=== PATIENT | female | born 1965 | race Caucasian/White ===

== ENCOUNTER → 2016-05-07 | Outpatient (CLI) | payer OTHER ==
[2016-05-07 08:02] LABS: Urine RBC None Seen /hpf (0 - 4)
[2016-05-07 08:18] LABS: Basophils # (auto) 0 uL; Basophils % (auto) 0.8 % (0.0-2.0); Eosinophils # (auto) 0.2 uL; Eosinophils % (auto) 3.9 % (0.0-7.0); Hematocrit 43.7 % (36.0-46.0); Hemoglobin 14.8 g/dL (12.2-16.2); Lymphocytes # (auto) 1.6 uL; Lymphocytes % (auto) 26.4 % (10.0-50.0); Mean Corpuscular Hemoglobin 31.2 pg (28.0-32.0); Mean Corpuscular Hgb Conc. 33.9 g/dL (32.0-36.0); Mean Corpuscular Volume 92.1 fL (80.0-100.0); Mean Platelet Volume 9.4 fL (7.4-10.4); Monocytes # (auto) 0.4 uL; Monocytes % (auto) 6.8 % (0.0-12.0); Neutrophils # (auto) 3.8 uL; Neutrophils % (auto) 62.1 % (37.0-80.0); Platelet Count (auto) 232 10^3/uL (140-450); Red Cell Distribution Width 12.4 % (11.6-16.0); White Blood Cell 6.1 10^3/uL (4.4-10.8)
[2016-05-07 08:38] LABS: Urine Bilirubin Negative (Negative); Urine Blood Negative /uL (Negative); Urine Color Yellow (Yellow); Urine Glucose Normal (Normal); Urine Ketone Negative (Negative); Urine Mucus FEW (None Seen); Urine Nitrite Negative (Negative); Urine Squamous Epithelial Cell FEW /hpf (<5); Urine Urobilinogen Normal (Negative)
[2016-05-07 08:56] LABS: Albumin 3.8 g/dL (3.4-5.0); BUN/Creatinine Ratio 16.3; Bilirubin, Total 0.4 mg/dL (0.2-1.0); Calcium 9.1 mg/dL (8.5-10.1); Potassium 4.7 mmol/L (3.5-5.1); Total Protein 7.8 g/dL (6.4-8.2)
== END | disposition home or self-care (01) ==
LOC: LAB 07:31
PROVIDERS: ATTEND Internal Medicine
DX: E11.22 Type 2 diabetes mellitus with diabetic chronic kidney disease (principal); E78.2 Mixed hyperlipidemia; I10 Essential (primary) hypertension
CPT/HCPCS: 36415; 80053; 80061; 81001; 83036; 85025

== ENCOUNTER 2016-06-30 08:34 | Day surgery (SDC) | payer OTHER ==
[2016-06-26 09:58] LABS: Basophils # (auto) 0 uL; Basophils % (auto) 0.7 % (0.0-2.0); Eosinophils # (auto) 0.2 uL; Eosinophils % (auto) 3.9 % (0.0-7.0); Hemoglobin 14.4 g/dL (12.2-16.2); Lymphocytes # (auto) 1.1 uL; Lymphocytes % (auto) 23.2 % (10.0-50.0); Mean Corpuscular Hemoglobin 31.7 pg (28.0-32.0); Mean Corpuscular Hgb Conc. 34.4 g/dL (32.0-36.0); Mean Corpuscular Volume 92.2 fL (80.0-100.0); Mean Platelet Volume 9.1 fL (7.4-10.4); Monocytes # (auto) 0.5 uL; Monocytes % (auto) 10.2 % (0.0-12.0); Neutrophils # (auto) 2.9 uL; Platelet Count (auto) 197 10^3/uL (140-450); Red Cell Distribution Width 12.6 % (11.6-16.0); White Blood Cell 4.6 10^3/uL (4.4-10.8)
[2016-06-26 10:12] LABS: INR 0.99 (0.9-1.15); Partial Thromboplastin Time 26.8 sec (22.64-33.71); Prothrombin Time 10.7 sec (9.37-12.3)
[2016-06-30] MEDS ORDERED: SODIUM CHLORIDE LOCK 10 ML ONE (09:10)
[2016-06-30] MEDS ORDERED: diphenhdrAMINE HCL 50 MG/1 ML VL ONE (09:11)
[2016-06-30] MEDS ORDERED: fentaNYL CITRATE 100 MCG/2 ML VL ONE (09:11)
[2016-06-30] MEDS: MIDAZOLAM HCL 5 MG/ML-1ML VIAL ONE ×3 (10:25→10:33)
[2016-06-30] MEDS: fentaNYL CITRATE 100 MCG/2 ML VL ONE ×3 (10:25→10:33)
[2016-06-30 11:25] VITALS: BP 105/59
== END 2016-06-30 11:30 | disposition home or self-care (01) ==
LOC: GI 08:34
PROVIDERS: ATTEND Internal Medicine Gastroenterology
DX: Z12.11 Encounter for screening for malignant neoplasm of colon (principal); K62.89 Other specified diseases of anus and rectum; K64.4 Residual hemorrhoidal skin tags
CPT/HCPCS: 36415; 45378; 85025; 85610; 85730; J1200; J2250; J3010; J7030